=== PATIENT | female | born 1955 | race Caucasian/White ===

== ENCOUNTER 2016-07-28 05:08 | Emergency (ER) | payer OTHER ==
[~2016-07-28] VITALS: Ht 157.5 cm; Wt 100.0 kg
[2016-07-28 05:13] VITALS: BP 147/70; PULSE 83; RESP 16; O2SAT 96
[2016-07-28] MEDS ORDERED: 0.9% Sodium Chloride 1,000 ML IV ONE ×2 (05:26→06:25)
[2016-07-28] MEDS ORDERED: Ondansetron 2 mg/mL 2 mL Inj IVPUSH ONE ×2 (05:30→06:30)
[2016-07-28 05:47] LABS: APPEARANCE,URINE HAZY (CLEAR,HAZY); COLOR,URINE YELLOW (YELLOW); OCCULT BLOOD,URINE TRACE (NEGATIVE); UROBILINOGEN,URINE NORMAL (NORMAL)
[2016-07-28 06:02] LABS: BASOPHILS % (AUTO) 0.1 % (0-3); EOSINOPHILS % (AUTO) 6.6 % (0-5); MONOCYTES % (AUTO) 6.1 % (4-12); Mean Corpuscular Hemoglobin 29.6 pg (27.0-35.0); Mean Corpuscular Volume 88.8 fL (81-100); NEUTROPHILS % (AUTO) 74.3 % (40-74); Platelet Count 240 bil/L (150-400)
--- NOTE | 2016-07-28 06:13 | ED.REPORT ---
HPI-Abd Pain F 40 and Over Date of Service Jul 28, 2016 ED Provider: Jeromy Gómez MD The patient is a 61 year old female w/ a hx of DM (on Metformin and Lantus), HTN and diverticulitis who presents to the ED w/ lower abdominal pain for the past week. Last Tuesday, she began getting pains in her lower abdomen which resolved later in the day. The pain returned the next day and increased in severity. She assumed it was her diverticulitis acting up. She took some MiraLAX and drank a lot of water in attempt to benita symptoms, which was not affective. Yesterday at work, she was sitting and felt a pop in her lower abdomen as if "someone had stabbed me." On the drive home from work, she began to get nauseous and began burping excessively. Her symptoms continued later into the evening and she began vomiting. Just the smell of food makes her nauseous. The pain radiated across from the front of her abdomen and is worse on her left side. She reports her symptoms are similar to her previous episode of diverticulitis 5 years ago. She does not currently report any pain. She has had no previous abdominal surgeries aside from 2 C-sections and a hysterectomy. Her sugar this morning was 166. Nursing Notes Stated Complaint: ABDOMINAL PAIN Chief Complaint: Female Abdominal Pain Nursing Notes Reviewed: Yes (Oxyrane [place] not reconciled) Allergies: Uncoded Allergies: SULFA (Allergy, Severe, 03/11/09) BEE STING (Allergy, Unknown, 07/28/16) Scheduled Amoxicillin/Clav K 875-125 mg (Augmentin 875-125 mg) 1 Each Tablet 1 TABLET PO BID Scheduled PRN Hydrocodone-Acetaminophen 5-325 mg (Hydrocodone-Acetaminophen 5-325 mg) 1 Each Tablet 1-2 TABLET PO Q4H PRN PRN For Pain Ondansetron ODT (Ondansetron ODT) 8 Mg Tab.rapdis 8 MG PO Q4H PRN PRN For Nausea General Time Seen by MD: 05:25 Chief Complaint Abdominal pain Hx Obtained From: Patient Arrived By: Walk-in Sudden in Onset?: Yes Onset Occurred: 1 week ago Symptom Duration: Since onset Location: : Abdomen lower Quality: Painful, Pressure, Stabbing Severity: Current: No pain currently Severity: Maximum: Moderate Associated with: Reports: Nausea, Vomiting Recent Healthcare: No recent doctor visit, No recent hospitalization Similar Sx Previous: No Past Medical History Past Medical History ho PB induced angioedema Reports: Diabetes mellitus, Hypertension Reports: Diverticulitis Past Surgical History Reports: , Hysterectomy Smoking History Unknown if Ever Smoker Social History Other Social History: , Local resident Ambulatory Status Independent Review of Systems GI: Reports: Abdominal pain, Nausea, Vomiting Complete sys rev & neg: except as marked. Physical Exam Physical Exam Notes: Vital Signs Vital Signs (First) Date Time Temp Pulse Resp B/P Pulse Ox O2 Delivery O2 Flow Rate FiO2 07/28/16 05:13 37.8 83 16 147/70 96 Room Air Initial VS: Reviewed, Vital signs normal Head / Eyes: Atraumatic, Normocephalic, PERRL Extremities: Vascular intact, Neuro intact, No swelling, No tenderness Skin: Warm, Dry, No cyanosis Neurologic: Alert, Oriented, Nonfocal Psychiatric: Mood/affect normal, Behavior normal, Normal thought content General/Constitutional: Awake, Alert, Cooperative Appearance / Presentation: Positive: Obese fatigued Respiratory / Chest: Atraumatic, Breath sounds NL, Breath sounds = bilat, No respiratory distress Cardiovascular: Heart rate NL, Regular rhythm, Heart sounds NL Abdomen: Atraumatic, Soft Tenderness/Guarding/Rebound: Positive: Tender LLQ... (Mild), Tender RLQ... ( Mild) Back: Atraumatic, Inspection NL, Full range of motion Mouth: Positive: Mucous membranes dry Interpretation & Diagnostics Lab Results Interpretation Result Diagram: 07/28/16 0550 07/28/16 0550 Test 07/28/16 05:30 07/28/16 05:50 07/28/16 06:45 Urine Color Yellow (YELLOW) Urine Appearance Hazy (CLEAR,HAZY) Urine pH 6.0 (5.0-8.0) Urine Specific [place] 1.010 (1.003-1.035) Urine Protein Negativemg/dL (NEG,TRACE) Urine Glucose (UA) Negativemg/dL (NEGATIVE) Urine Ketones Negativemg/dL (NEGATIVE) Urine Occult Blood Trace (NEGATIVE) Urine Nitrite Negative (NEGATIVE) Urine Bilirubin Negative (NEGATIVE) Urine Urobilinogen Normalmg/dL (NORMAL) Urine Leukocyte Esterase Moderate (NEGATIVE) Urine RBC 0-2/hpf (0-2) Urine WBC 6-10/hpf (0-5) Urine Epithelial Cells Moderate/hpf (NONE-MOD) Urine Crystals None seen (NONE SEEN) Urine Bacteria Many/hpf (NONE-FEW) Urine Hyaline Casts None/lpf (NONE) Urine Granular Casts None seen (NONE SEEN) Urine Waxy Casts None seen (NONE SEEN) Urine Red Blood Cell Casts None seen (NONE SEEN) Urine White Blood Cell Casts None seen (NONE SEEN) Urine Mucus None seen (None Seen) Urine Trichomonas None seen (NONE SEEN) Urine Yeast None (NONE SEEN) Urinalysis Comment None Urine Culture Reflexed Indicated White Blood Count 7.2th/mm3 (3.8-10.1) Red Blood Count 4.63mil/mm3 (3.90-5.20) Hemoglobin 13.7g/dL (12.0-15.6) Hematocrit 41.1% (35.0-46.0) Mean Corpuscular Volume 88.8fL (81-100) Mean Corpuscular Hemoglobin 29.6pg (27.0-35.0) Mean Corpuscular Hemoglobin Concent 33.3% (32.0-37.0) Red Cell Distribution Width 14.1% (12.3-15.4) Platelet Count 240bil/L (150-400) Neutrophils (%) (Auto) 74.3% (40-74) Lymphocytes (%) (Auto) 12.6% (14-46) Monocytes (%) (Auto) 6.1% (4-12) Eosinophils (%) (Auto) 6.6% (0-5) Basophils (%) (Auto) 0.1% (0-3) Prothrombin Time 10.6sec (8.1-12.5) Prothromb Time International Ratio 0.99ratio Sodium Level 140mEq/L (134-144) Potassium Level 4.3mEq/L (3.5-5.2) Chloride Level 100mEq/L (97-108) Carbon Dioxide Level 25mmol/L (18-29) Blood Urea Nitrogen 24mg/dL (8-27) Creatinine 0.72mg/dL (0.57-1.00) Estimat Glomerular Filtration Rate 118mL/min (>59) Glucose Level 208mg/dL (60-99) Calcium Level 9.0mg/dL (8.5-10.1) Magnesium Level 1.3mg/dL (1.6-2.6) Total Bilirubin 0.6mg/dL (0.0-1.2) Aspartate Amino Transf (AST/SGOT) 23U/L (0-50) Alanine Aminotransferase (ALT/SGPT) 28U/L (0-32) Alkaline Phosphatase 105U/L (25-165) Total Protein 6.1g/dL (6.4-8.4) Albumin 4.0g/dL (3.4-5.0) Lipase 15U/L (13-60) Lactic Acid Level 0.8mmol/L (0.4-2.0) Lab Results Interpretation: CBC normal CMP normal except for mild hyperglycemia ECG Interpretation Time: 06:00 Interpreted by: ED physician Normal ECG Interpretation: Normal ECG w/ rate of... (77) CT Abd / Pelvis Interpretation IMPRESSION: 1. Mild inflammatory changes adjacent to the distal left colon compatible with mild diverticulitis. 2. Cholelithiasis. 3. Hepatic steatosis. Dictated by: Ayah Arreguin MD, PhD on 07/28/2016 at 9:25 Approved by: Ayah Arreguin MD, PhD on 07/28/2016 at 9:33 Study type: Abdominal CT no contrast Interpretation / Wet Read by: Interpret - Radiologist Re-Eval/Medical Decision Med Decision/Clinical Course This is a 61-year-old female presents complaining of nausea vomiting and abdominal pain in the left lower quadrant that started yesterday evening and persisted, but she thinks it may be somewhat similar to an episode of diverticulitis she has had in the past. Patient is a diabetic and did not take her Lantus or her insulin this morning due to the vomiting as she was not sure what to do. On exam she appears well, obese, and has only trace tenderness in the left lower quadrant. She is not febrile, she is not toxic, she has no clinical findings of peritonitis. Blood work was normal. CT imaging does confirm early diverticulitis. The patient was started on antibiotics here received a dose of Unasyn. She recieved pain and nausea medicine, as well as a dose of her routine Lantus. The patient had no vomiting, felt much better. I reviewed options, the main concern from a clinical standpoint would be the vomiting whether or not that is limiting her ability to take by mouth meds or be discharged home, but she feels well enough otherwise she feels this to prefer to be at home-and a laboratory imaging are such that home management would be entirely reasonable. The patient did so well she had no vomiting during her ED course of her multiple hours, completed by mouth challenge and is comfortable going home. Routine precautions reviewed. Patient is being discharged in a ten-day course of Augmentin. When necessary ondansetron and hydrocodone are being provided. She is to follow-up with her PCP. Return, discharge instructions were both reviewed Source of Hx: Old records Re-Evaluation/Progress : Time of Eval: 09:30 Patient Status: Pain improved Re-Evaluation/Progress Note: Pt rechecked. Informed pt of diagnosis of diverticulitis. Plan for antibiotics and further pain medication. Differential Diagnosis: Positive: Diverticular disease, Negative: Abdominal aortic aneurysm, Acute abdominal pain, Ectopic , Esophageal rupture, Gun shot wound abdomen, Intrauterine , Ischemic bowel, Pancreatitis, Peritonitis, Porphyria, Volvulus Counseled Regarding: Diagnosis, Lab results, Need for follow-up, When/why to return to ED Discharge & Departure Primary Impression: Diverticulitis Diverticulitis site: large intestine Diverticulitis bleeding: without bleeding Diverticulitis complication: without perforation or abscess Qualified Code: K57.32 - Diverticulitis of large intestine without perforation or abscess without bleeding Disposition: Home Discharge Condition All VS Reviewed: Yes Condition: Stable Additional Instructions: 1. Your CT scan confirms that you are having an episode of diverticulitis. 2. Take the antibiotic Augmentin (amoxicillin/clavulanate) 875mg twice a day for 10 days. Next dose this evening. (You received an intravenous dose in the department) 3. Take ondansetron 8mg (let dissolve underneath tongue) up to every 4 hours as needed for nausea 4. Take hydrocodone 5/325 one to 2 tabs up to every 4 hours as needed for pain. NOTE: This medication does contain a narcotic and causes some drowsiness. No driving for at least 4 hours after taking 5. Drink frequnet sips of fluid, slowly advance diet as tolerated. 6. Take your Lantus insulin tonight. 7. Return to the emergency department if new, worsening or uncontrolled symptoms. Symptoms are suspected to be clearly improving over the next 2-3 days. If you develop a fever or worsnening symptoms, return to the ED. Referrals: Ariel Hahn DO (PCP) Lisa Attestation Portion of this note were transcribed by Akanksha Post. I, Dr. Gómez, personally performed the history, physical exam, and medical decision-making: I reviewed and confirmed the accuracy for the information in the transcribed note. Signed by: lisa Ramon, 07/28/16 1100 copies to: Ariel Hahn Matthew F MD Jul 28, 2016 06:13 Akanksha Post Jul 28, 2016 06:22
[2016-07-28 06:22] LABS: INR 0.99 ratio
[2016-07-28 06:25] LABS: Magnesium 1.3 mg/dL (1.6-2.6)
[2016-07-28] MEDS ORDERED: Insulin GLARgine 100 Unit/mL Syringe SUBQ ONE (06:25)
[2016-07-28] MEDS ORDERED: Magnesium Sulf 2 Gm/50mL Water 2 GM in IV Premix 1 EACH IV ONE (06:40)
[2016-07-28 07:13] VITALS: BP 110/49; PULSE 73; RESP 16; O2SAT 94
[2016-07-28] MEDS ORDERED: Ampicillin-Sulbactam Inj 3,000 MG in 0.9% Sodium Chloride 100 ML IV ONE (09:30)
--- NOTE | 2016-07-28 09:34 | DRSVH ---
PROCEDURE: CT ABDOMEN AND PELVIS WITH CONTRAST ([id number]) INDICATIONS: LLQ Abdom TECHNIQUE: After the administration of intravenous contrast, 5 mm thick sections acquired from the diaphragm to the symphysis. 5 mm coronal and sagittal reformats were acquired. For radiation dose reduction, the following was used: automated exposure control, adjustment of mA and/or kV according to patient siz e. COMPARISON: None. FINDINGS: Image quality: Excellent. ABDOMEN: Lung bases: Lung bases are clear. Heart size is normal. Solid organs: Liver and spleen are normal in size and enhancement. Diffuse fatty infiltration the li kassandra is noted. Gallbladder contains gallstones. Biliary system is non dilated. Pancreas enhances nor marvin. No adrenal nodules. Kidneys demonstrate normal size and enhancement, without hydronephrosis. Peritoneum and bowel: Bowel loops demonstrate normal wall thickness and caliber. Scattered diverticu la noted in the colon. Mild inflammatory changes are noted adjacent to the distal left colon at the j unction with the sigmoid colon in the region of several diverticuli compatible with diverticulitis. N o free fluid or air. The appendix is normal. Nodes and vessels: No retroperitoneal or mesenteric adenopathy by size criteria. Aorta and inferior vena cava are normal in size. Miscellaneous: No ventral hernias. PELVIS: Genitourinary: Bladder wall thickness is normal. Small lateral air noted within the urinary bladder which could be related to recent catheterization, infection or less likely fistulous connection with bowel. Miscellaneous: No inguinal hernias or adenopathy. Bones: No suspicious bony lesions. No vertebral body compression fractures. Spine degenerative disc disease and facet arthropathy are noted. IMPRESSION: 1. Mild inflammatory changes adjacent to the distal left colon compatible with mild diverticulitis. 2. Cholelithiasis. 3. Hepatic steatosis. Dictated by: Ayah Arreguin MD, PhD on 07/28/2016 at 9:25 Approved by: Ayah Arreguin MD, PhD on 07/28/2016 at 9:33
[2016-07-28] MEDS ORDERED: ONDA8TAB10 PO (10:32)
[2016-07-28] MEDS ORDERED: HYDR-4003 PO (10:32)
[2016-07-28] MEDS ORDERED: AMOX-366 PO (10:42)
[2016-07-28 10:54] VITALS: BP 104/57; PULSE 69; RESP 18; O2SAT 92
== END 2016-07-28 10:55 | disposition home or self-care (01) ==
LOC: SED 05:08
DX: K57.32 Diverticulitis of large intestine without perforation or abscess without bleeding (principal); E11.9 Type 2 diabetes mellitus without complications; I10 Essential (primary) hypertension; Z79.84 Long term (current) use of oral hypoglycemic drugs; Z79.4 Long term (current) use of insulin; Z88.2 Allergy status to sulfonamides
CPT/HCPCS: 36415; 74177; 80053; 81000; 83605; 83690; 83735; 85025; 85610; 87086; 87088; 93005; 96361; 96365; 96372; 96375; 96376; 99285; J0295; J1815; J1885; J2405; J7030; Q9967